=== PATIENT | female | born 1990 | race American Indian/Alaskan Native ===

== ENCOUNTER 2017-08-05 23:27 | Emergency (ER) | payer OTHER ==
[2017-08-05 23:48] VITALS: BP 152/94
[2017-08-06] MEDS ORDERED: BOOSTRIX IM ONE (01:34)
--- NOTE | 2017-08-06 01:37 | Emergency Department Report ---
ED Animal Bite HPI - General Chief Complaint: Animal Bite Stated Complaint: dog bite Time Seen by Provider: 08/06/17 01:31 Source: patient Mode of arrival: Ambulatory Limitations: No Limitations - History of Present Illness Initial Comments: 26 yo MORBIDLY OBESE female with left 2digit with an abrasion from her dog. Pt was prying her dog's mouth OPNE TO REMOVE SOME TRASH and cut her finger on his tooth. This is her personal dog and his shots are up to date. MD Complaint: animal bite -: hour(s) (13) Location: other (HAND) Left: Shoulder, Hand Animal: dog Animal Control Notified: No Description: household pet Mechanism: scratch, contact with mucous membr Severity scale (0 -10): 0 Associated Symptoms: none - Related Data Patient Tetanus UTD: No Previous Rx's Medication Instructions Recorded Last Taken Type Amoxicillin [Trimox CAP] 500 mg PO Q8H #30 capsule 07/07/13 Unknown Rx Ibuprofen [Motrin] 800 mg PO TID PRN #14 tablet 07/07/13 Unknown Rx Acetaminophen/Codeine 1 tab PO Q6H PRN #14 tab 09/28/14 Unknown Rx [Acetaminophen-Codeine #3 TAB] Acyclovir [Zovirax Tab] 400 mg PO Q8H #21 tab 09/28/14 Unknown Rx Penicillin Vk [Veetids TAB] 500 mg PO QID #28 tablet 09/28/14 Unknown Rx Acetaminophen/Codeine [Tylenol #3] 1 tab PO Q6H PRN #15 tab 09/26/15 Unknown Rx Cyclobenzaprine [Flexeril] 10 mg PO TID PRN #15 tablet 01/08/16 Unknown Rx Ibuprofen [Motrin 800 MG tab] 800 mg PO TID PRN #20 tablet 01/08/16 Unknown Rx Amoxicillin/Potassium Clav 1 each PO BID #28 tablet 08/06/17 Unknown Rx [Augmentin 875-125 Tablet] Allergies Allergy/AdvReac Type Severity Reaction Status Date / Time No Known Allergies Allergy Verified 01/08/16 03:14 ED Review of Systems ROS: Stated complaint: dog bite Other details as noted in HPI Constitutional: denies: chills, fever Eyes: denies: eye pain, eye discharge, vision change ENT: denies: ear pain, throat pain Respiratory: denies: cough, shortness of breath, wheezing Cardiovascular: denies: chest pain, palpitations Endocrine: no symptoms reported Gastrointestinal: denies: abdominal pain, nausea, diarrhea Genitourinary: denies: urgency, dysuria, discharge Musculoskeletal: denies: back pain, joint swelling, arthralgia Skin: denies: rash, lesions Neurological: denies: headache, weakness, paresthesias Psychiatric: denies: anxiety, depression Hematological/Lymphatic: denies: easy bleeding, easy bruising ED Past Medical Hx - Past Medical History Previous Medical History?: No - Surgical History Past Surgical History?: No - Social History Smoking Status: Never Smoker Substance Use Type: None - Medications Home Medications: Home Medications Medication Instructions Recorded Confirmed Last Taken Type Amoxicillin [Trimox CAP] 500 mg PO Q8H #30 capsule 07/07/13 Unknown Rx Ibuprofen [Motrin] 800 mg PO TID PRN #14 tablet 07/07/13 Unknown Rx Acetaminophen/Codeine 1 tab PO Q6H PRN #14 tab 09/28/14 Unknown Rx [Acetaminophen-Codeine #3 TAB] Acyclovir [Zovirax Tab] 400 mg PO Q8H #21 tab 09/28/14 Unknown Rx Penicillin Vk [Veetids TAB] 500 mg PO QID #28 tablet 09/28/14 Unknown Rx Acetaminophen/Codeine [Tylenol #3] 1 tab PO Q6H PRN #15 tab 09/26/15 Unknown Rx Cyclobenzaprine [Flexeril] 10 mg PO TID PRN #15 tablet 01/08/16 Unknown Rx Ibuprofen [Motrin 800 MG tab] 800 mg PO TID PRN #20 tablet 01/08/16 Unknown Rx Amoxicillin/Potassium Clav 1 each PO BID #28 tablet 08/06/17 Unknown Rx [Augmentin 875-125 Tablet] ED Physical Exam - General Limitations: No Limitations General appearance: alert, in no apparent distress - Head Head exam: Present: atraumatic, normocephalic - Eye Eye exam: Present: normal appearance - ENT ENT exam: Present: mucous membranes moist - Neck Neck exam: Present: normal inspection - Respiratory Respiratory exam: Present: normal lung sounds bilaterally. Absent: respiratory distress - Cardiovascular Cardiovascular Exam: Present: regular rate, normal rhythm. Absent: systolic murmur, diastolic murmur, rubs, gallop - GI/Abdominal GI/Abdominal exam: Present: soft, normal bowel sounds - Rectal Rectal exam: Present: deferred - Extremities Exam Extremities exam: Present: full ROM, tenderness (2ND DIGIT AMALL 1CM ABRASION DISTAL PHALANX) - Back Exam Back exam: Present: normal inspection, full ROM - Neurological Exam Neurological exam: Present: alert, oriented X3, CN II-XII intact - Psychiatric Psychiatric exam: Present: normal affect, normal mood - Skin Skin exam: Present: warm, dry, normal color. Absent: intact (2ND DIGIT WITH SMALL ABRASION 1CM, WITH BLOOD), rash ED Course Vital Signs 08/05/17 23:46 Temperature 98.4 F Pulse Rate 79 Respiratory 20 Rate Blood Pressure 152/94 O2 Sat by Pulse 100 Oximetry Critical care attestation.: If time is entered above; I have spent that time in minutes in the direct care of this critically ill patient, excluding procedure time. ED Disposition Clinical Impression: Dog bite Qualifiers: Encounter type: initial encounter Qualified Code(s): W54.0XXA - Bitten by dog, initial encounter Obesity Qualifiers: Obesity type: due to excess calories Obesity classification: adult class 3 ( BMI >= 40) Serious obesity comorbidity presence: without serious comorbidity Body mass index: BMI 45.0-49.9 Qualified Code(s): E66.01 - Morbid (severe) obesity due to excess calories; Z68.42 - Body mass index (BMI) 45.0-49.9, adult ; Z68.42 - Body mass index (BMI) 45.0-49.9, adult; Z68.42 - Body mass index (BMI ) 45.0-49.9, adult; Z68.42 - Body mass index (BMI) 45.0-49.9, adult Disposition: TO HOME OR SELFCARE Is pt being admited?: No Does the pt Need Aspirin: No Condition: Stable Instructions: Animal Bite (ED), Obesity (ED) Additional Instructions: PLEASE RETURN TO THE ER IF YOUR FINGER HURTS MORE, SELLS MOER OR LOOKS INFECTED. SEE YOUR DOCTOR IN 2 DAYS FOR FOLLOW UP Prescriptions: Amoxicillin/Potassium Clav [Augmentin 875-125 Tablet] 1 each PO BID #28 tablet Referrals: PRIMARY CARE, [Primary Care Provider] - 3-5 Days Time of Disposition: 01:39
== END 2017-08-06 02:27 | disposition home or self-care (01) ==
LOC: ED 23:27
DX: S61.251A Open bite of left index finger without damage to nail, initial encounter (principal); E66.01 Morbid (severe) obesity due to excess calories; Z68.42 Body mass index [BMI] 45.0-49.9, adult; W54.0XXA Bitten by dog, initial encounter; Y93.89 Activity, other specified; Y99.8 Other external cause status; Y92.89 Other specified places as the place of occurrence of the external cause
CPT/HCPCS: 90471; 90715

== ENCOUNTER 2018-03-08 16:41 | Emergency (ER) | payer SELFPAY ==
[2018-03-08 16:50] VITALS: BP 139/83
--- NOTE | 2018-03-08 17:24 | Emergency Department Report ---
Blank Doc - Documentation Documentation: Patient is a 27-year-old female has had some mild dysuria especially when she starts her urinary stream as well as suprapubic discomfort for approximately week. Patient states that her initially pain was just in the right lower quadrant but now is in the suprapubic region. Patient was seen at urgent care and supposedly had a negative urinalysis but was sent here because the symptoms persisted. On brief physical exam patient is a mild superior discomfort but she is alert and oriented 3 in no acute distress. Patient will be moved to a treatment room for pelvic exam will recheck her urine.
--- NOTE | 2018-03-08 18:36 | Emergency Department Report ---
ED Female HPI - General Chief complaint: Urogenital-Female Stated complaint: STOMACH PAIN Time Seen by Provider: 03/08/18 17:08 Source: patient, family Mode of arrival: Ambulatory Limitations: No Limitations - History of Present Illness Initial comments: Patient here complaining that she is having pelvic pain and when she push to urinate it hurts. She says she have to sit in a certain way or she feels that the pain is in her vagina. She says she was at the urgent care and urine test was negative today. She said this is being gone on for 4-5 days. Denies any vaginal deep bleeding or discharge. She denies any nausea vomiting or back pain. She reports pressure. Abdominal pain is intermittent and is 4 out of 10 and crampy. Denies constipation. Patient says she has not had sexual activity for 7 years and she did douche last week. Pain is worse with palpation and no alleviating factor. Last menstrual period was 02/17/2018 MD Complaint: dysuria, pelvic pain, other (vaginal pain positional) Onset/Timin -: days(s) Location: suprapubic Radiation: non-radiating Severity: moderate Severity scale (0 -10): 6 Quality: other (pressure) Consistency: intermittent Improves with: none Worsens with: other (palpation) Are you Now?: No Last Menstrual Period: 02/17/18 EDC: 11/24/18 Associated Symptoms: abdominal pain, dysuria. denies: vaginal discharge, vaginal bleeding, nausea/vomiting, fever/chills, headaches, loss of appetite, rash, seizure, shortness of breath, syncope, weakness - Related Data Sexually active: No (no sexual activity for 7 years) : 0 Previous Rx's Medication Instructions Recorded Last Taken Type Amoxicillin [Trimox CAP] 500 mg PO Q8H #30 capsule 07/07/13 Unknown Rx Ibuprofen [Motrin] 800 mg PO TID PRN #14 tablet 07/07/13 Unknown Rx Acetaminophen/Codeine 1 tab PO Q6H PRN #14 tab 09/28/14 Unknown Rx [Acetaminophen-Codeine #3 TAB] Acyclovir [Zovirax Tab] 400 mg PO Q8H #21 tab 09/28/14 Unknown Rx Penicillin Vk [Veetids TAB] 500 mg PO QID #28 tablet 09/28/14 Unknown Rx Acetaminophen/Codeine [Tylenol #3] 1 tab PO Q6H PRN #15 tab 09/26/15 Unknown Rx Cyclobenzaprine [Flexeril] 10 mg PO TID PRN #15 tablet 01/08/16 Unknown Rx Ibuprofen [Motrin 800 MG tab] 800 mg PO TID PRN #20 tablet 01/08/16 Unknown Rx Amoxicillin/Potassium Clav 1 each PO BID #28 tablet 08/06/17 Unknown Rx [Augmentin 875-125 Tablet] Naproxen 500 mg PO Q12H PRN #14 tablet 03/08/18 Unknown Rx Sulfamethoxazole/Trimethoprim 1 each PO BID 5 Days #10 tablet 03/08/18 Unknown Rx [Bactrim DS TAB] Allergies Allergy/AdvReac Type Severity Reaction Status Date / Time No Known Allergies Allergy Verified 01/08/16 03:14 ED Review of Systems ROS: Stated complaint: STOMACH PAIN Other details as noted in HPI Constitutional: denies: chills, fever Eyes: denies: eye pain, eye discharge, vision change ENT: denies: ear pain, throat pain Respiratory: denies: cough, shortness of breath, SOB with exertion, SOB at rest , stridor, wheezing Cardiovascular: denies: chest pain, palpitations, edema, syncope Gastrointestinal: abdominal pain. denies: nausea, vomiting, diarrhea, constipation Genitourinary: dysuria. denies: urgency, frequency, hematuria, discharge, abnormal menses Musculoskeletal: denies: back pain, joint swelling, arthralgia, myalgia Skin: denies: rash, lesions, pruritus Neurological: denies: headache, weakness ED Past Medical Hx - Past Medical History Previous Medical History?: No - Surgical History Past Surgical History?: No - Family History Family history: hypertension - Social History Smoking Status: Never Smoker Substance Use Type: None - Medications Home Medications: Home Medications Medication Instructions Recorded Confirmed Last Taken Type Amoxicillin [Trimox CAP] 500 mg PO Q8H #30 capsule 07/07/13 Unknown Rx Ibuprofen [Motrin] 800 mg PO TID PRN #14 tablet 07/07/13 Unknown Rx Acetaminophen/Codeine 1 tab PO Q6H PRN #14 tab 09/28/14 Unknown Rx [Acetaminophen-Codeine #3 TAB] Acyclovir [Zovirax Tab] 400 mg PO Q8H #21 tab 02/17/15 Unknown Rx Penicillin Vk [Veetids TAB] 500 mg PO QID #28 tablet 09/28/14 Unknown Rx Acetaminophen/Codeine [Tylenol #3] 1 tab PO Q6H PRN #15 tab 09/26/15 Unknown Rx Cyclobenzaprine [Flexeril] 10 mg PO TID PRN #15 tablet 01/08/16 Unknown Rx Ibuprofen [Motrin 800 MG tab] 800 mg PO TID PRN #20 tablet 01/08/16 Unknown Rx Amoxicillin/Potassium Clav 1 each PO BID #28 tablet 08/06/17 Unknown Rx [Augmentin 875-125 Tablet] Naproxen 500 mg PO Q12H PRN #14 tablet 03/08/18 Unknown Rx Sulfamethoxazole/Trimethoprim 1 each PO BID 5 Days #10 tablet 03/08/18 Unknown Rx [Bactrim DS TAB] ED Physical Exam - General Limitations: No Limitations General appearance: alert, in no apparent distress - Head Head exam: Present: atraumatic, normocephalic, normal inspection - Eye Eye exam: Present: normal appearance, PERRL, EOMI Pupils: Present: normal accommodation - ENT ENT exam: Present: normal exam, normal orophraynx, mucous membranes moist - Neck Neck exam: Present: normal inspection, full ROM. Absent: tenderness, lymphadenopathy - Respiratory Respiratory exam: Present: normal lung sounds bilaterally. Absent: respiratory distress, chest wall tenderness - Cardiovascular Cardiovascular Exam: Present: regular rate, normal rhythm, normal heart sounds. Absent: systolic murmur, diastolic murmur - GI/Abdominal GI/Abdominal exam: Present: soft, tenderness (pelvic, mid area), normal bowel sounds. Absent: distended, guarding, rebound, rigid, organomegaly, mass, bruit , pulsatile mass - External exam: Present: normal external exam Speculum exam: Present: vaginal discharge, cervical discharge. Absent: normal speculum exam, erythema, vaginal bleeding, foreign body, tissue, laceration Bi-manual exam: Present: normal bi-manual exam. Absent: cervical motion tendernes, adnexal tenderness, adnexal mass, uterine enlargement, uterine tenderness - Extremities Exam Extremities exam: Present: normal inspection, full ROM, normal capillary refill , other (No cce. + 2 pulses in all extremities, no neurovascular compromise). Absent: tenderness, pedal edema, joint swelling, calf tenderness - Back Exam Back exam: Present: normal inspection, full ROM, other (ambulates without any difficulties). Absent: tenderness, CVA tenderness (R), CVA tenderness (L), muscle spasm, paraspinal tenderness, vertebral tenderness, rash noted - Neurological Exam Neurological exam: Present: alert, oriented X3, normal gait - Psychiatric Psychiatric exam: Present: normal affect, normal mood - Skin Skin exam: Present: warm, dry, intact, normal color. Absent: rash ED Course Vital Signs 03/08/18 03/08/18 16:44 19:30 Temperature 98.7 F Pulse Rate 98 H Respiratory 18 18 Rate Blood Pressure 139/83 O2 Sat by Pulse 98 Oximetry - Reevaluation(s) Reevaluation #1: 03/08/18 19:21 Patient given Motrin 800 mg by mouth in emergency room for abdominal pain which relieves her pain. Reevaluation #2: 03/08/18 20:09 Patient and is stable. Pain is better and awaiting ultrasound report Reevaluation #3: 03/08/18 21:03 Ultrasound report is back and wet prep his back and urinalysis is back and reported explained to patient. She is stable with out any pain after Motrin given. ED Medical Decision Making - Lab Data Lab Results 03/08/18 Range/Units 18:03 Urine Color Yellow (Yellow) Urine Turbidity Clear (Clear) Urine pH 6.0 (5.0-7.0) Ur Specific [place] 1.021 (1.003-1.030) Urine Protein <15 mg/dl (Negative) mg/dL Urine Glucose (UA) Neg (Negative) mg/dL Urine Ketones Neg (Negative) mg/dL Urine Blood Neg (Negative) Urine Nitrite Neg (Negative) Urine Bilirubin Neg (Negative) Urine Urobilinogen < 2.0 (<2.0) mg/dL Ur Leukocyte Esterase Neg (Negative) Urine WBC (Auto) 1.0 (0.0-6.0) /HPF Urine RBC (Auto) 2.0 (0.0-6.0) /HPF U Epithel Cells (Auto) < 1.0 (0-13.0) /HPF Urine Bacteria (Auto) 1+ (Negative) /HPF Urine Mucus Few /HPF Urine HCG, Qual Negative (Negative) CHL pending Wet prep negative for Trichomonas, yeast and bacterial vaginosis - Radiology Data Radiology results: report reviewed Pelvic ultrasound and transvaginal ultrasound dictated by radiologist and report reviewed by myself. Please see details below. Patient: HÉCTOR BRANCH MR#: [id number] : 1990 Acct:[id number] Age/Sex: 27 / F ADM Date: 03/08/18 Loc: ED Attending Dr: Ordering Physician: JAVI MANUEL Date of Service: 03/08/18 Procedure(s): US transvaginal Accession Number(s): [id number] cc: JAVI MANUEL FINAL REPORT EXAM: US TRANSVAGINAL HISTORY: pelvic pain TECHNIQUE: Transvesical and endovaginal pelvic sonographic imaging was performed Comparison: None FINDINGS: Normally anteverted uterus measures 6.7 x 3.1 x 3.9 centimeters. Homogeneous myometrial echotexture. Endometrial stripe measures 13 millimeters. Right ovary measures 3.8 x 2.4 x 3.8 centimeters. Left ovary measures 3.5 x 2.7 x 3.7 centimeters and demonstrates a complex 1.4 x 1.0 x 1.2 centimeter cystic structure. Normal color flow to both ovaries. Trace free cul-de-sac fluid. IMPRESSION: 1.4 x 1.0 x 1.2 centimeter complex cystic lesion left ovary. Normal color flow to the left ovary. Finding may represent a physiologic cyst. If clinically indicated, recommend follow-up off cycle imaging in 6 or 10 weeks. Thickened 13 millimeter endometrial stripe. LMP is not indicated. Transcribed By: MP Dictated By: SRINIVAS FITZGERALD Electronically Authenticated By: SRINIVAS FITZGERALD Signed Date/Time: 03/08/182011 DD/ 11 TD/TT: 03/08/182011 Patient: HÉCTOR BRANCH MR#: [id number] : 1990 Acct:[id number] Age/Sex: 27 / F ADM Date: 03/08/18 Loc: ED Attending Dr: Ordering Physician: JAVI MANUEL Date of Service: 03/08/18 Procedure(s): US pelvis duplex doppler comp Accession Number(s): [id number] cc: JAVI MANUEL FINAL REPORT EXAM: US PELVIS DUPLEX DOPPLER COMP HISTORY: pelvic pain TECHNIQUE: Transvesical and endovaginal pelvic sonographic imaging was performed Comparison: None FINDINGS: Normally anteverted uterus measures 6.7 x 3.1 x 3.9 centimeters. Homogeneous myometrial echotexture. Endometrial stripe measures 13 millimeters. Right ovary measures 3.8 x 2.4 x 3.8 centimeters. Left ovary measures 3.5 x 2.7 x 3.7 centimeters and demonstrates a complex 1.4 x 1.0 x 1.2 centimeter cystic structure. Normal color flow to both ovaries. Trace free cul-de-sac fluid. IMPRESSION: 1.4 x 1.0 x 1.2 centimeter complex cystic lesion left ovary. Normal color flow to the left ovary. Finding may represent a physiologic cyst. If clinically indicated, recommend follow-up off cycle imaging in 6 or 10 weeks. Thickened 13 millimeter endometrial stripe. LMP is not indicated. Transcribed By: MP Dictated By: SRINIVAS FITZGERALD Electronically Authenticated By: SRINIVAS FITZGERALD Signed Date/Time: 03/08/182008 DD/ 08 TD/TT: 03/08/182008 - Differential Diagnosis ovarian cyst, torsion, uterine fibroid, UTI, cervicitis, STD Critical care attestation.: If time is entered above; I have spent that time in minutes in the direct care of this critically ill patient, excluding procedure time. ED Disposition Clinical Impression: Pelvic pain, Dysuria, Complex cyst of left ovary, Bacteriuria Disposition: DC-01 TO HOME OR SELFCARE Is pt being admited?: No Does the pt Need Aspirin: No Condition: Stable Instructions: Ovarian Cyst (ED), Urinary Tract Infection in Women (ED), Dysuria (ED), Abdominal Pain (ED) Additional Instructions: Follow-up primary care physician and if you do not have a primary care physician follow-up at [facility]. Call tomorrow to schedule an appointment Take antibiotic as prescribed. Please do not hold your urine when he gets the urge to urinate and drink plenty of fluids to include after juice, cranberry juice and water. Avoid caffeinated beverages and carbonated beverages. If you conditions worsens, return to the emergency room You have a complex left ovarian cyst that will need to be followed by [facility]. Radiologist recommended follow-up ultrasound when you are obvious cycle in 6-10 weeks. Please take naproxen as prescribed Prescriptions: Naproxen 500 mg PO Q12H PRN #14 tablet PRN Reason: pelvic Sulfamethoxazole/Trimethoprim [Bactrim DS TAB] 1 each PO BID 5 Days #10 tablet Referrals: [facility] [Provider Group] - 3-5 Days [facility] [Outside] - 3-5 Days COBY SOLIS MD [Staff Physician] - 3-5 Days Forms: Work/School Release Form(ED)
[2018-03-08 18:47] LABS: Bacteria,Urine 1+ /HPF (Negative); Bilirubin,Urine NEG (Negative); Blood,Urine NEG (Negative); Color,Urine Yellow (Yellow); Mucus,Urine FEW /HPF; Protein,Urine <15 mg/dL mg/dL (Negative); Urobilinogen,Urine < 2.0 mg/dL (<2.0)
[2018-03-08 18:48] LABS: HCG Qualitative,Urine Negative (Negative)
[2018-03-08] MEDS ORDERED: MOTRIN PO ONE (18:58)
--- NOTE | 2018-03-08 20:16 | Ultrasound Report ---
FINAL REPORT EXAM: US PELVIS DUPLEX DOPPLER COMP HISTORY: pelvic pain TECHNIQUE: Transvesical and endovaginal pelvic sonographic imaging was performed Comparison: None FINDINGS: Normally anteverted uterus measures 6.7 x 3.1 x 3.9 centimeters. Homogeneous myometrial echotexture. Endometrial stripe measures 13 millimeters. Right ovary measures 3.8 x 2.4 x 3.8 centimeters. Left ovary measures 3.5 x 2.7 x 3.7 centimeters and demonstrates a complex 1.4 x 1.0 x 1.2 centimeter cystic structure. Normal color flow to both ovaries. Trace free cul-de-sac fluid. IMPRESSION: 1.4 x 1.0 x 1.2 centimeter complex cystic lesion left ovary. Normal color flow to the left ovary. Finding may represent a physiologic cyst. If clinically indicated, recommend follow-up off cycle imaging in 6 or 10 weeks. Thickened 13 millimeter endometrial stripe. LMP is not indicated.
--- NOTE | 2018-03-08 20:19 | Ultrasound Report ---
FINAL REPORT EXAM: US TRANSVAGINAL HISTORY: pelvic pain TECHNIQUE: Transvesical and endovaginal pelvic sonographic imaging was performed Comparison: None FINDINGS: Normally anteverted uterus measures 6.7 x 3.1 x 3.9 centimeters. Homogeneous myometrial echotexture. Endometrial stripe measures 13 millimeters. Right ovary measures 3.8 x 2.4 x 3.8 centimeters. Left ovary measures 3.5 x 2.7 x 3.7 centimeters and demonstrates a complex 1.4 x 1.0 x 1.2 centimeter cystic structure. Normal color flow to both ovaries. Trace free cul-de-sac fluid. IMPRESSION: 1.4 x 1.0 x 1.2 centimeter complex cystic lesion left ovary. Normal color flow to the left ovary. Finding may represent a physiologic cyst. If clinically indicated, recommend follow-up off cycle imaging in 6 or 10 weeks. Thickened 13 millimeter endometrial stripe. LMP is not indicated.
[2018-03-10] MEDS ORDERED: NACL 0.9 (PRIMING MACHINE ONLY DIALYSIS) MC ONE (17:01)
== END 2018-03-08 21:11 | disposition home or self-care (01) ==
LOC: ED 16:41
DX: R82.71 Bacteriuria (principal); N83.202 Unspecified ovarian cyst, left side
CPT/HCPCS: 76830; 81001; 81025; 87086; 87210; 87591; 93975